=== PATIENT | male | born 1985 | race Caucasian/White ===

== ENCOUNTER 2017-07-01 02:39 | Emergency (ER) | payer SELFPAY ==
[~2017-07-01] VITALS: Ht 167.6 cm; Wt 90.7 kg
[2017-07-01 02:49] VITALS: Ht 167.6 cm; Wt 90.7 kg
[2017-07-01 03:59] LABS: BASOPHIL % 0.2 % (0-2); PLATELET COUNT 221 x10^3mcL (130-400); RED CELL DISTRIBUTION WIDTH 13.5 % (11.5-14.5)
[2017-07-01 04:12] LABS: CALCIUM 8.4 mg/dL (8.5-10.1); CARBON DIOXIDE 24.2 mmol/L (21-32); CHLORIDE SERUM 104 mmol/L (98-107); CREATININE SERUM 0.8 mg/dL (0.7-1.3); GFR1 > 60 mL/min; GLUCOSE SERUM 112 mg/dL (74-106); POTASSIUM SERUM 3.3 mmol/L (3.5-5.1); SODIUM SERUM 138 mmol/L (136-145)
[2017-07-01 05:20] VITALS: BP 136/75
== END 2017-07-01 05:20 | disposition home or self-care (01) ==
LOC: ED 02:39
PROVIDERS: Emergency Medicine
DX: J02.0 Streptococcal pharyngitis (principal)
CPT/HCPCS: J1100; J1885; J3490; J7030